=== PATIENT | male | born 1975 | race Two or more races ===

== ENCOUNTER → 2018-04-05 | Outpatient (CLI) | payer BC ==
--- NOTE | 2018-04-05 15:06 | Diagnostic Imaging Report ---
Indication: Trauma facial headache Technique: Continuous helical transaxial imaging of the maxillofacial structures obtained without intravenous contrast administration. Coronal 2-D reformats were also obtained. Study obtained in a Siemens sensation [address] Automatic Exposure Control was utilized. Total Dose length Product (DLP): mGycm CT Dose Index Volume (CTDIvol): mGy Comparison: None Findings: There is no evidence of an acute fracture. There is some mucosal thickening in the left maxillary sinus. The paranasal sinuses are otherwise clear. Mastoids are clear bilaterally. Soft tissues are unremarkable. IMPRESSION: No acute injury. Mild sinusitis The CT scanner at [facility] is accredited by the [employer] and the scans are performed using dose optimization techniques as appropriate to a performed exam including Automatic Exposure control.
== END | disposition home or self-care (01) ==
LOC: RAD 14:07
DX: R43.0 Anosmia (principal); J32.9 Chronic sinusitis, unspecified
CPT/HCPCS: 70486

== ENCOUNTER 2018-06-08 14:30 | Outpatient (CLI) | payer BC ==
--- NOTE | 2018-06-08 16:55 | Diagnostic Imaging Report ---
Indication: Pain in the left great toe region Technique: Axial, sagittal, and coronal T1 fast spin echo and fast spin echo STIR images obtained of the forefoot Comparison: none Findings: There is minimal edema of the dorsal surface of the distal great toe, particularly in the subungual region. No underlying marrow abnormality demonstrated. The remaining osseous marrow signal is normal and preserved as well. No other significant soft tissue abnormality. Impression: Possible subungual edema of the great toe, nonspecific, could indicate trauma or cellulitis No marrow abnormality to suggest acute osteomyelitis or bony trauma
== END 2018-06-08 16:30 | disposition home or self-care (01) ==
LOC: MRI 14:30
DX: M25.572 Pain in left ankle and joints of left foot (principal)